=== PATIENT | female | born 1985 | race Asian ===

== ENCOUNTER 2024-10-14 02:23 | Emergency (ER) | payer OTHER, SELFPAY ==
--- NOTE | ~2024-10-14 | CT_ITS ---
CLINICAL HISTORY: bilateral lower quad pain CT abdomen and pelvis with contrast Comparison: None Findings: The lung bases are clear. Hepatomegaly with steatosis. Scattered lobulated low-density foci throughout the liver may reflect cysts or hemangiomas, nonspecific. Splenule. Tiny bilateral hypodense renal cysts. No urolithiasis. Sigmoid and descending colonic mural thickening with submucosal edema and pericolonic inflammatory changes, concerning for colitis. No small bowel obstruction. Post appendectomy. Large rectal and distal colonic stool burden with fecal impaction in the rectum. Trace ascites in the pelvis. No acute fracture. IMPRESSION: 1. Findings concerning for prominent distal colitis. 2. Trace ascites in the pelvis. 3. Rectal fecal impaction with large colorectal stool burden. This document has been electronically signed by: Quentin Melvin MD on 10/14/2024 04:30:42
[2024-10-14 02:29] VITALS: BP 98/63; PULSE 65; RESP 24; O2SAT 100; BMI 21.6
--- NOTE | 2024-10-14 02:42 | ED_ITS ---
HPI - Abdominal Pain General Chief Complaint: Abdominal Pain Stated Complaint: abd pain Time Seen by Provider: 10/14/24 02:26 Source: patient Mode of arrival: ambulatory Limitations: no limitations History of Present Illness ED Provider: Dr. Kesha Mari HPI narrative: Patient comes to the emergency room complaining of severe lower abdominal pain that started approximately 6 hours ago. Patient complaining of nausea and vomiting, no diarrhea. Patient denies constipation. Patient states that she has had appendectomy in the past. Last menstrual period a week ago. Related Data Previous Rx's ?Medication ?Instructions ?Recorded levofloxacin 500 mg tablet 500 mg PO DAILY #9 tabs 10/14/24 metronidazole 500 mg tablet 500 mg PO BID #20 tabs 10/14/24 polyethylene glycol 3350 17 17 g PO DAILY PRN laxative effect 10/14/24 gram/dose oral powder (Miralax) #119 grams Allergies Allergy/AdvReac Type Severity Reaction Status Date / Time No Known Allergies Allergy Verified 10/14/24 02:31 Review of Systems Review of Systems Constitutional : No Weight loss, No Fever, No Chills, No Night Sweats, No Fatigue, No Malaise ENT/Mouth : No Hearing loss, No Ear Pain, No Nasal Congestion, No Sinus Pain, No Hoarseness, No sore throat, No Rhinorrhea, No Swallowing Difficulty Eyes: No Eye Pain, No Swelling, No Redness, No Foreign Body, No Discharge, No Vision Changes Cardiovascular : No Chest Pain, No SOB, No Dyspnea on Exertion, No Orthopnea, No Edema, No Palpitations Respiratory : No Cough, No Sputum, No Wheezing, No Smoke Exposure, No Dyspnea Gastrointestinal : Complaining of nausea, vomiting, no diarrhea constipation, complaining of bilateral lower quadrant pain Genitourinary : no irregular bleeding, No Dysuria, No Urinary Frequency, No Hematuria, No Urinary Incontinence, No Urgency, No Flank Pain, No Urinary Flow Changes, No Hesitancy Musculoskeletal : No joint pain, No Myalgias, No Joint Swelling Skin : No Skin Lesions, No rash Neuro : No Weakness, No Numbness, No Paresthesias, No Loss of Consciousness, No Dizziness, No Headache Psych : No Anxiety/Panic, No Depression, No SI/HI/AH/VH, No Social Issues, Heme/Lymph: No Bruising, No Bleeding,No Lymphadenopathy Endocrine : No Polyuria, No Polydipsia, No Temperature Intolerance PMFSH Past Medical History Surgical History (Updated 10/14/24 @ 02:44 by Kesha Mari MD) History of appendectomy Social History Social History Advance Directives: No Advance Directives Information Provided: Yes Do you have a plan to hurt others: No Plan Physical Exam ED Vital Signs: Vital Signs - 24 hr 10/14/24 02:29 10/14/24 04:02 Temperature 97.7 F Pulse Rate 65 77 Respiratory Rate 24 H 16 Blood Pressure 98/63 110/71 Pulse Oximetry 100 97 Oxygen Delivery Method Room Air Room Air BMI result Body Mass Index 21.6 Const Other: Appearance: Alert. Oriented X3. Looks very uncomfortable Eyes: Pupils equal, round and reactive to light. ENT: Pharynx normal. Neck: Normal inspection. Neck supple. No lymph nodes noted. No crepitus CVS: Normal heart rate and rhythm. Pulses normal. Normal S1 and S2 Respiratory: No respiratory distress. Breath sounds normal. No Wheezing. No rales Abdomen: Soft , nondistended, tenderness to palpation in periumbilical and bilateral lower quadrants, no rebound, mild guarding. Skin: Skin warm and dry. Normal skin color. Normal skin turgor. Extremities: No lower extremity edema. No Lacerations. No Rash Neuro: Oriented X 3. No motor deficit. No sensory deficit. Moving all extremities. No slurred speech. CN 2 through 12 grossly intact Psych: calm, cooperative, anxious Course Course Course Narrative: Patient coming in with abdominal pain started 6 hours ago, reports nausea vomiting. Patient receiving IV fluids, Zofran and morphine All of patient's labs are pending and imaging pending Medical Decision Making Medical Decision Making [facility] Narrative: My interpretation of labs: Patient's white blood cell count 14.8. Chemistry does not show any significant abnormality, normal LFTs, normal lipase, hCG negative, urinalysis negative CT scans concerning for distal colitis, rectal fecal impaction with large colorectal stool burden Patient was given p.o. antibiotics in the emergency room. Patient instructed to make sure that she has good bowel movements, Stool softeners have been sent the patient's pharmacy. Differential Diagnosis Differential Diagnoses: The differential diagnosis associated with the presentation includes (Diverticulitis, SBO, colitis) Admission/Observation Consideration of admission/observation: Escalation of care including admission/observation considered (Given patient's presentation, observation was considered) Lab Data [facility] Lab Attestation statement: I reviewed the patient's lab results. 10/14/24 02:47 10/14/24 02:47 Labs: Lab Results 10/14/24 10/14/24 Range/Units 02:47 04:20 WBC 14.8 H (4.8-10.8) X10*3/uL RBC 5.28 (4.20-5.50) X10*6/uL Hgb 16.7 H (12.0-16.0) g/dl Hct 45.3 (37.0-47.0) % MCV 85.8 (80.0-98.0) fL MCH 31.6 (27.0-33.0) pg MCHC 36.9 H (31.0-35.0) g/dl RDW 11.6 (11.0-16.0) % Plt Count 320 (160-400) X10*3/uL MPV 8.5 L (9.4-12.3) fL Immature Gran % (Auto) 0.4 (0.0-0.4) % Neut % (Auto) 89.2 H (45-73) % Lymph % (Auto) 4.5 L (20-40) % [place] % (Auto) 5.5 (2-11) % Eos % (Auto) 0.1 (0-4) % Baso % (Auto) 0.3 (0-2) % Lymph # (Auto) 0.7 L (1.2-4.9) X10*3/uL [place] # (Auto) 0.8 (0.1-1.2) X10*3/uL Eos # (Auto) 0.0 (0.0-0.4) X10*3/uL Baso # (Auto) 0.0 (0.0-0.2) X10*3/uL Abs Immat Gran (auto) 0.06 H (0.00-0.03) X10*3/uL Absolute Neuts (auto) 13.2 H (2.0-8.3) x10*3/uL Absolute Nucleated RBC 0.000 (0.0-0.012) X10*3/uL Nucleated RBC % (auto) 0.0 (0.0-0.2) /100WBC Sodium 139 (135-145) mmol/L Potassium 4.3 (3.3-5.1) mmol/L Chloride 106 (96-108) mmol/L Carbon Dioxide 20 L (22-29) mmol/L Anion Gap 17 (12-20) BUN 10 (9-16) mg/dL Creatinine 0.73 (0.5-1.4) mg/dL Estim Creat Clear Calc 96.8 Estimated GFR > 60 Random Glucose 126 H (60-115) mg/dL Calcium 9.8 (8.4-10.2) mg/dL Total Bilirubin 1.0 (0.0-1.0) mg/dL AST 36 H (5-31) U/L ALT 25 (0-31) U/L Alkaline Phosphatase 62 (39-117) U/L Total Protein 7.9 (6.5-8.0) g/dL Albumin 4.7 (3.5-5.0) g/dL Lipase 32 (8-78) U/L Beta HCG, Quant < 2 mIU/mL Urine Color Yellow Urine Appearance Clear Urine pH 7.0 (5.0-9.0) Ur Specific [place] >= 1.030 H (1.005-1.025) Urine Protein Trace (Neg-Trace) mg/dL Urine Glucose (UA) Negative (Negative) mg/dL Urine Ketones 80 (Negative) mg/dL Urine Blood Negative (Negative) Urine Nitrite Negative (Negative) Ur Leukocyte Esterase Negative (Negative) Independent Interpretation I performed an independent interpretation of an: CT Scan Radiology Impression Discussion of test interpretation with radiology: I have reviewed the radiologist's reading. Radiologist Impression: Hepatomegaly with steatosis. Scattered lobulated low-density foci throughout the liver may reflect cysts or hemangiomas, nonspecific. Splenule. Tiny bilateral hypodense renal cysts. No urolithiasis. Sigmoid and descending colonic mural thickening with submucosal edema and pericolonic inflammatory changes, concerning for colitis. No small bowel obstruction. Post appendectomy. Large rectal and distal colonic stool burden with fecal impaction in the rectum. Trace ascites in the pelvis. No acute fracture. IMPRESSION: 1. Findings concerning for prominent distal colitis. 2. Trace ascites in the pelvis. 3. Rectal fecal impaction with large colorectal stool burden. Medications Administered Discontinued Medications Generic Name Dose Route Start Last Admin Trade Name Freq PRN Reason Stop Dose Admin Sodium Chloride 1,000 mls @ 999 mls/hr 10/14/24 02:41 10/14/24 03:44 Ns IVCONT 10/14/24 03:41 Infused .Q1H1M ONE Infusion Iohexol 85 ml 10/14/24 03:51 10/14/24 03:51 Iohexol 350 Mg/Ml 100 Ml Infus..Btl IV 10/14/24 03:52 85 ml ONCE ONE Administration Morphine Sulfate 2 mg 10/14/24 02:41 10/14/24 02:52 Morphine Sulfate 4 Mg/Ml Cartridge IVPUSH 10/14/24 02:42 2 mg ONCE ONE Administration Protocol Ondansetron HCl 4 mg 10/14/24 02:41 10/14/24 02:52 Ondansetron Hcl 4 Mg/2 Ml Vial IVPUSH 10/14/24 02:42 4 mg ONCE ONE Administration Critical Care Time Critical Care Time Critical Care Time: Yes Total Critical Care Time: 45 Attestation: I have personally provided critical care time. Time includes review of lab data, radiology results, discussion with consultants, and monitoring for potential decompensation. Intervention performed as documented. Discharge Plan Discharge Clinical Impression: Colitis, Constipation Patient Disposition: Home, Self-Care Instructions: Constipation (ED), Colitis (ED) Additional Instructions: Please follow-up with your primary care physician tomorrow. If you have any worsening or new symptoms, please return to the emergency room or call 911 Prescriptions: New levofloxacin 500 mg tablet 500 mg PO DAILY Qty: 9 0RF metronidazole 500 mg tablet 500 mg PO BID Qty: 20 0RF polyethylene glycol 3350 [Miralax] 17 gram/dose powder 17 g PO DAILY PRN (Reason: laxative effect) Qty: 119 0RF Print Language: Tamazight
[2024-10-14 02:51] LABS: MANUAL DIFF FLAG NO
[2024-10-14 02:52] LABS: Basophils Percent Auto 0.3 % (0-2); Eosinophils Percent Auto 0.1 % (0-4); Hematocrit 45.3 % (37.0-47.0); Hemoglobin 16.7 g/dl (12.0-16.0); Imm Gran Abs Auto 0.06 X10*3/uL (0.00-0.03); Imm Gran Pct Auto 0.4 % (0.0-0.4); Lymphocytes Absolute Auto 0.7 X10*3/uL (1.2-4.9); Lymphocytes Percent Auto 4.5 % (20-40); Mean Corpuscular HGB Conc 36.9 g/dl (31.0-35.0); Mean Corpuscular Hemoglobin 31.6 pg (27.0-33.0); Mean Corpuscular Volume 85.8 fL (80.0-98.0); Mean Platelet Volume 8.5 fL (9.4-12.3); Monocytes Absolute Auto 0.8 X10*3/uL (0.1-1.2); Monocytes Percent Auto 5.5 % (2-11); Neutrophils Absolute Auto 13.2 x10*3/uL (2.0-8.3); Neutrophils Percent Auto 89.2 % (45-73); Platelet Count 320 X10*3/uL (160-400); Red Blood Count 5.28 X10*6/uL (4.20-5.50); Red Cell Distribution Width 11.6 % (11.0-16.0); White Blood Count 14.8 X10*3/uL (4.8-10.8)
[2024-10-14] MEDS: Morphine Sulfate 4 MG/ML CARTRIDGE 2 MG IVPUSH (02:52)
[2024-10-14] MEDS: ondansetron HCL 4 MG/2 ML VIAL IVPUSH (02:52)
[2024-10-14] MEDS: 0.9 % Sodium Chloride 1,000 ML 999 ML IVCONT (02:55)
[2024-10-14 03:18] LABS: Alanine Aminotransferase 25 U/L (0-31); Albumin Level 4.7 g/dL (3.5-5.0); Anion Gap 17 (12-20); Aspartate Amino Transferase 36 U/L (5-31); Blood Urea Nitrogen 10 mg/dL (9-16); Calcium 9.8 mg/dL (8.4-10.2); Carbon Dioxide 20 mmol/L (22-29); Chloride 106 mmol/L (96-108); Creatinine Clr Calc Pharmacy 96.8; Estimated Glomerular Filt Rate > 60; Glucose Random 126 mg/dL (60-115); Lipase 32 U/L (8-78); Potassium 4.3 mmol/L (3.3-5.1); Sodium 139 mmol/L (135-145); Total Protein 7.9 g/dL (6.5-8.0)
[2024-10-14 03:23] LABS: HCG Quantitative < 2 mIU/mL
[2024-10-14 03:45] LABS: Alkaline Phosphatase 62 U/L (39-117)
[2024-10-14] MEDS: iohexoL 350 MG/ML 100 ML INFUS..BTL 85 ML IV (03:51)
[2024-10-14 04:02] VITALS: BP 110/71; PULSE 77; RESP 16; TEMP 36.5; O2SAT 97
[2024-10-14 04:35] LABS: Appearance Urine Clear; Color Urine Yellow; Glucose Urine UA Negative (Negative); Leukocyte Esterase Urine Negative (Negative); Nitrite Urine Negative (Negative); Specific Gravity - Urine >= 1.030 (1.005-1.025); Urine Blood Negative (Negative); Urine Ketones 80 mg/dL (Negative); Urine Protein Trace mg/dL (Neg-Trace)
[2024-10-14] MEDS: metroNIDAZOLE 500 MG TABLET PO (05:59)
[2024-10-14] MEDS: levoFLOXacin 500 MG TABLET PO (05:59)
[2024-10-14 06:01] VITALS: BP 110/71; PULSE 77; RESP 16; TEMP 36.5; O2SAT 97
== END 2024-10-14 06:02 | disposition home or self-care (01) ==
PROVIDERS: Emergency Provider Emergency Medicine; PCP Nurse Practitioner Family
DX: K52.9 Noninfective gastroenteritis and colitis, unspecified (principal); R11.2 Nausea with vomiting, unspecified; K59.00 Constipation, unspecified; R10.30 Lower abdominal pain, unspecified; R10.2 Pelvic and perineal pain; Z79.899 Other long term (current) drug therapy
CPT/HCPCS: 36415; 74177; 80053; 81003; 83690; 84702; 85025; 96361; 96374; 96375; 99284; J2270; J2405; Q9967

== ENCOUNTER → 2024-10-14 02:42 | Outpatient (BNV) | payer OTHER, SELFPAY | PROVIDERS: Emergency Provider Emergency Medicine; PCP Nurse Practitioner Family; Visit Provider Radiology Diagnostic Radiology | DX: K56.41 Fecal impaction (principal) | CPT/HCPCS: 74177 ==